=== PATIENT | female | born 1950 | race Hispanic/Latino ===

== ENCOUNTER 2021-11-10 15:45 | Outpatient (CLI) | payer MEDICARE | END 2021-11-10 15:46 | disposition home or self-care (01) | LOC: CSHLAB 15:45 | PROVIDERS: ATTEND Student in an Organized Health Care Education/Training Program | DX: Z01.818 Encounter for other preprocedural examination (principal); Z20.822 Contact with and (suspected) exposure to COVID-19 | CPT/HCPCS: 80048; 85027; 86850; 86900; 86901; 93005; 93010; U0003; U0005 ==

== ENCOUNTER 2021-11-15 05:21 | Day surgery (SDC) | payer MEDICARE ==
[2021-11-09 09:31] VITALS: BMI 22.7
[2021-11-10 18:17] LABS: Hemoglobin 12.4 g/dL (12.0-15.5); Mean Corpuscular HGB CONC 31.2 g/dL (32.0-36.0); Mean Corpuscular Hemoglobin 28.6 pg (27.0-33.0); Mean Corpuscular Volume 91.5 fl (81.6-98.3); Mean Platelet Volume 11.2 fl (7.4-10.4); Platelet Count 331 10x3/uL (150-450); RBC Distribution Width 13.9 % (11.5-14.5); Red Blood Cell (RBC) Count 4.34 10x6/uL (3.90-5.03); White Blood Cell (WBC) Count 9.6 10x3/uL (3.5-10.5)
[2021-11-10 18:19] LABS: Anion Gap 16 mmol/L (10-20); BUN (Urea Nitrogen) 27 mg/dL (9.8-20.1); Calc. Creatinine Clearance 0 mL/min (70-130); Carbon Dioxide 20 mmol/L (23-31); Chloride 109 mmol/L (98-107); Potassium 4.5 mmol/L (3.5-5.1); Sodium 140 mmol/L (136-145)
[2021-11-10 18:20] LABS: Calcium 9.4 mg/dL (7.8-10.44); Glucose 102 mg/dL (83-110)
[2021-11-11 17:10] LABS: SARS-CoV-2 PCR by NAA Not Detected (NotDetected)
[2021-11-15] MEDS ORDERED: Gabapentin 300 MG CAP ONE (06:06)
[2021-11-15] MEDS ORDERED: CeleCOXIB 100 MG CAP ONE (06:06)
[2021-11-15] MEDS ORDERED: Lidocaine 1% MPF 2 ML VIAL ONE (06:06)
[2021-11-15] MEDS ORDERED: Famotidine/PF 20 mg/2ml Vial ONE (06:07)
[2021-11-15] MEDS ORDERED: EPINEPHrine 1 MG/ML AMP ONE (06:49)
[2021-11-15] MEDS ORDERED: PROPOFOL 20 ML ONE (06:50)
[2021-11-15] MEDS ORDERED: Bupivacaine PF 0.5% 30 ML VIAL ONE (06:50)
[2021-11-15] MEDS ORDERED: Fentanyl 100 MCG/2 ML VIAL ONE (06:50)
[2021-11-15] MEDS ORDERED: Lidocaine 1% PF 5 ML VIAL ONE (06:50)
[2021-11-15] MEDS ORDERED: Lidocaine 1% w/Epinephrine 1:100K 20 ML VIAL ONE (06:50)
[2021-11-15] MEDS ORDERED: Rocuronium Bromide 10 MG/ML (10ML VIAL) ONE (06:50)
[2021-11-15] MEDS ORDERED: Lidocaine 0.5%/Epinephrine 1:200,000 50 ml Vial ONE (06:51)
[2021-11-15] MEDS ORDERED: Lidocaine 2% Jelly 5 ML TUBE ONE (07:20)
[2021-11-15] MEDS ORDERED: ceFAZolin 2 GM/Dextrose 50 ML IVPB ONE (07:28)
[2021-11-15] MEDS ORDERED: PHENYLEPHRINE-NS 100 MCG/ML 10 ML SYRINGE ONE (07:51)
[2021-11-15] MEDS ORDERED: ePHEDrine Sulfate 50 MG/10 ML VIAL ONE (07:55)
[2021-11-15] MEDS ORDERED: Glycopyrrolate 0.2 MG/ML 5 ML SYRINGE ONE (08:14)
[2021-11-15] MEDS ORDERED: Ondansetron PF 4 MG/2 ML Vial ONE (10:26)
[2021-11-15] MEDS ORDERED: Ketorolac Tromethamine 30 MG/ML VIAL ONE (10:26)
[2021-11-15] MEDS ORDERED: Dextrose 50% Abboject 50 ML SYRINGE SLOW IVP PRN (10:39)
[2021-11-15] MEDS ORDERED: Fentanyl 100 MCG/2 ML VIAL SLOW IVP PRN (10:39)
[2021-11-15] MEDS ORDERED: HYDROcodone/Acetaminophen 5/325 mg Tablet PO PRN ×2 (10:39)
[2021-11-15] MEDS ORDERED: diphenhydrAMINE 25 MG CAP PO PRN (10:39)
[2021-11-15] MEDS ORDERED: Insulin Regular 300 UNITS/3 ML VIAL SC PRN (10:39)
[2021-11-15] MEDS ORDERED: Ondansetron PF 4 MG/2 ML Vial IVP PRN (10:39)
[2021-11-15] MEDS ORDERED: Simethicone Chewable 80 MG TAB PO PRN (10:39)
[2021-11-15] MEDS ORDERED: Promethazine HCl 25 MG/ML VIAL IM PRN (10:39)
[2021-11-15] MEDS ORDERED: Bisacodyl 10 MG SUPP PR PRN (10:39)
[2021-11-15] MEDS ORDERED: Dextrose 5% in Water 1,000 ML IV PRN (10:39)
[2021-11-15] MEDS: Ketorolac Tromethamine 30 MG/ML VIAL IVP SCH ×2 (13:09→18:34)
[2021-11-15] MEDS: metFORMIN 850 MG TAB PO SCH (17:19)
[2021-11-15] MEDS ORDERED: Ibuprofen 600 MG TAB PO SCH (18:00)
[2021-11-15] MEDS: NIFEdipine XL 30 MG TAB PO SCH (21:08)
[2021-11-15] MEDS: Lisinopril 10 MG TAB PO SCH (21:09)
[2021-11-16] MEDS: Ketorolac Tromethamine 30 MG/ML VIAL IVP SCH (00:11)
[2021-11-16 04:39] LABS: Hemoglobin 9.5 g/dL (12.0-15.5); Mean Corpuscular HGB CONC 31.9 g/dL (32.0-36.0); Mean Corpuscular Hemoglobin 28.5 pg (27.0-33.0); Mean Corpuscular Volume 89.5 fl (81.6-98.3); Mean Platelet Volume 10.4 fl (7.4-10.4); Platelet Count 229 10x3/uL (150-450); RBC Distribution Width 13.9 % (11.5-14.5); Red Blood Cell (RBC) Count 3.33 10x6/uL (3.90-5.03); White Blood Cell (WBC) Count 14.4 10x3/uL (3.5-10.5)
[2021-11-16] MEDS ORDERED: Ibuprofen 600 MG TAB PO SCH (06:00)
[2021-11-16] MEDS ORDERED: Ibuprofen 600 MG TAB ONE (07:20)
[2021-11-16] MEDS: metFORMIN 850 MG TAB PO SCH ×2 (08:36→12:09)
[2021-11-16] MEDS: NIFEdipine XL 30 MG TAB PO SCH (08:36)
[2021-11-16] MEDS ORDERED: Alogliptin 6.25 MG TAB PO SCH (09:00)
[2021-11-16] MEDS ORDERED: Aspirin Chewable 81 MG TAB PO SCH (09:00)
[2021-11-16] MEDS: Lisinopril 10 MG TAB PO SCH (10:06)
[2021-11-16 11:34] VITALS: BP 133/64; TEMP 98.2
[2021-11-16] MEDS ORDERED: FLU VACC QS2021-22(65YR UP)/PF 240 MCG/0.7 ML SYRINGE IM ONE (13:00)
[2021-11-16 13:04] LABS: Anion Gap 13 mmol/L (10-20); BUN (Urea Nitrogen) 14 mg/dL (9.8-20.1); Calc. Creatinine Clearance 59 mL/min (70-130); Carbon Dioxide 21 mmol/L (23-31); Chloride 102 mmol/L (98-107); Glucose 133 mg/dL (83-110); Potassium 4.1 mmol/L (3.5-5.1); Sodium 132 mmol/L (136-145)
== END 2021-11-16 15:45 | disposition home or self-care (01) ==
LOC: CSHSDC 05:21 → UNDOADMIN 12:36 → CSHPED 12:36 → UNDODISIN 11-16 15:45 → CSHSDC 11-16 15:45
PROVIDERS: ATTEND Student in an Organized Health Care Education/Training Program
PROC: 0UT94ZZ Resection of Uterus, Percutaneous Endoscopic Approach (ICD-10-PCS; principal; 2021-11-15)
PROC: 0UT14ZZ Resection of Left Ovary, Percutaneous Endoscopic Approach (ICD-10-PCS; 2021-11-15)
PROC: 0UT74ZZ Resection of Bilateral Fallopian Tubes, Percutaneous Endoscopic Approach (ICD-10-PCS; 2021-11-15)
PROC: 0USG4ZZ Reposition Vagina, Percutaneous Endoscopic Approach (ICD-10-PCS; 2021-11-15)
PROC: 0JQC0ZZ Repair Pelvic Region Subcutaneous Tissue and Fascia, Open Approach (ICD-10-PCS; 2021-11-15)
PROC: 0JQC0ZZ Repair Pelvic Region Subcutaneous Tissue and Fascia, Open Approach (ICD-10-PCS; 2021-11-15)
DX: N81.3 Complete uterovaginal prolapse (principal); N88.8 Other specified noninflammatory disorders of cervix uteri; N83.8 Other noninflammatory disorders of ovary, fallopian tube and broad ligament; D50.0 Iron deficiency anemia secondary to blood loss (chronic); I12.9 Hypertensive chronic kidney disease with stage 1 through stage 4 chronic kidney disease, or unspecified chronic kidney disease; E11.22 Type 2 diabetes mellitus with diabetic chronic kidney disease; N18.9 Chronic kidney disease, unspecified; E78.5 Hyperlipidemia, unspecified; Z79.82 Long term (current) use of aspirin; Z79.84 Long term (current) use of oral hypoglycemic drugs; Z79.899 Other long term (current) drug therapy; Z20.822 Contact with and (suspected) exposure to COVID-19; Z01.818 Encounter for other preprocedural examination
CPT/HCPCS: 57260; 57425; 58571; 80048 ×2; 82962; 85027 ×2; 86850; 86900; 86901; U0003; U0005; 36415; 36416; 88307; 93005; J0171; J0690; J1815; J1885; J2001; J2405; J2704; J3010; S0020; S0028